=== PATIENT | female | born 1995 | race Caucasian/White ===

== ENCOUNTER → 2018-12-18 | Outpatient (CLI) | payer BC ==
[~2018-12-18] MED LIST: NITR-65 PO; PROM25SU43 RC
--- NOTE | 2018-12-18 15:08 | Diagnostic Imaging Report ---
PROCEDURE: US Non-ob pelvis comp/trans. TECHNIQUE: Multiple Real-time grayscale images were obtained of the pelvis in various projections endovaginally. Transabdominal imaging was also performed. INDICATION: Menorrhagia. COMPARISON: There are no prior ultrasound examinations available for comparison. A CT abdomen/pelvis exam of 04/16/2015 noted a small amount of free fluid in the pelvis but failed to show any abnormality of the uterus or ovaries. FINDINGS: On this examination, the uterus is nongravid and not enlarged measuring 7.3 x 4.6 x 3.0 cm. The uterus is slightly anteverted. The endometrial lining is thickened measuring 11 mm (normal endometrial lining is 5 mm or less). This finding is nonspecific. Correlation with the patient's menstrual cycle would be recommended. There is no focal mass involving the uterus to suggest a fibroid. There do appear to be a few nabothian cysts. None of these measure greater than 1 cm. Both ovaries are identified. There is blood flow to each ovary and there is no sign of torsion. There are numerous cysts/follicles associated with each ovary as well. The largest cyst is arising from the left ovary and measures 2.3 x 2.4 x 2.1 cm. The other cysts/follicles are in the 1 cm or less range. There is no solid pelvic mass but there is a small amount of nonspecific free fluid. IMPRESSION: 1. There are numerous cysts/follicles associated with the ovaries as well as a 2.2 x 2.4 x 2.1 cm dominant cyst arising from the left ovary. 2. There is no acute abnormality of the pelvis noted otherwise. 3. The endometrial lining is thickened but this finding is nonspecific. Correlation with the patient's menstrual cycle would be recommended. Dictated by: Dictated on workstation # [id number]
== END ==
LOC: RAD 12:38
PROVIDERS: ATTEND Family Medicine
DX: N83.201 Unspecified ovarian cyst, right side (principal); L70.8 Other acne; N92.1 Excessive and frequent menstruation with irregular cycle
CPT/HCPCS: 76830; 76856